=== PATIENT | female | born 1990 | race Hispanic/Latino ===

== ENCOUNTER 2020-05-27 17:01 | Emergency (ER) | payer BC, MEDICAID ==
[~2020-05-27] VITALS: Ht 160 cm; Wt 8604.0 kg
[~2020-05-27 17:01] MED LIST: CEPHALEXIN500 MG OR; CIPRO500 MG OR; CORTISPORIN OTI10 ML OT; DARVOCET-N100 MG OR; FLEXERIL10 MG OR; KEFLEX500 MG OR; NAPROSYN500 MG OR; PRE-NATAL OR; ULTRAM50 MG OR; ZITHROMAX500 MG PO
[2020-05-27 18:30] VITALS: BP 141/89
== END 2020-05-27 18:35 | disposition home or self-care (01) | DRG 153 ==
LOC: ED 17:01
DX: J02.9 Acute pharyngitis, unspecified (principal); F17.200 Nicotine dependence, unspecified, uncomplicated; Z20.828 Contact with and (suspected) exposure to other viral communicable diseases

== ENCOUNTER 2020-07-10 12:18 | Emergency (ER) | payer BC, MEDICAID ==
[~2020-07-10] VITALS: Ht 160 cm; Wt 100.0 kg
[2020-07-10 14:20] VITALS: BP 143/83
== END 2020-07-10 14:20 | disposition home or self-care (01) | DRG 866 ==
LOC: ED 12:18
DX: B34.9 Viral infection, unspecified (principal); F17.200 Nicotine dependence, unspecified, uncomplicated; Z20.822 Contact with and (suspected) exposure to COVID-19

== ENCOUNTER 2021-07-20 09:47 | Emergency (ER) | payer MEDICAID ==
[~2021-07-20] VITALS: Ht 160 cm; Wt 80.0 kg
[2021-07-20 10:58] VITALS: BP 122/70
== END 2021-07-20 14:16 | disposition left against medical advice (07) ==
LOC: ED 09:47
DX: Z91.19 Patient's noncompliance with other medical treatment and regimen (principal); Z20.822 Contact with and (suspected) exposure to COVID-19